=== PATIENT | male | born 1970 | race Caucasian/White ===

== ENCOUNTER 2017-10-13 09:07 | Outpatient (CLI) ==
[2013-05-19 00:25] VITALS: BMI 24.8
--- NOTE | 2017-10-13 11:15 | DI ---
EXAM: Three views of the right shoulder HISTORY: Pain in the right shoulder . COMPARISON: None FINDINGS: Right shoulder demonstrates no cortical irregularity or displaced fracture. There is no ly tic or blastic lesion. The glenohumeral joint and acromioclavicular joint are normal. The soft tiss ues are unremarkable. The adjacent osseous structures are normal. IMPRESSION: No acute abnormality of the right shoulder.
--- NOTE | 2017-10-13 11:16 | MRI ---
EXAM: MRI right knee without contrast. HISTORY: Right knee pain. More medial. Injured playing softball months ago. No reported right kne e surgery.. TECHNIQUE: Using a local extremity coil on a high field strength magnet multiplanar multisequence MR I was performed of the right knee without intravenous or intra-articular gadolinium contrast. FINDINGS: I do not have prior radiographs of the right knee available for comparison at the time of this dictation. Within the medial compartment there is a small area of tear along the superior articulating surface/i nner margin at the root posterior horn medial meniscus. Underlying bone marrow edema with subchondra l cyst formation at the posterior horn root insertion. Tear extends along the superior articulating s urface of the posterior horn body junction with changing slope. Suspected menisco-capsular sprain ov er the posterior medial corner as well. There is chondrosis with cartilage surface fissuring over th e weightbearing medial femoral condyle. Some generalized cartilage attenuation over the weightbearin g medial tibial plateau. Focal subchondral bone marrow edema over the medial weightbearing rim of th e medial tibial plateau. Early productive osteophyte formation. Within the lateral compartment the lateral meniscus is intact without discrete surfacing meniscal tea r. The lateral compartment cartilage congruent without focal underlying subchondral edema.. Early p roductive osteophyte formation. Within the patellofemoral compartment the patella seated with intact medial and lateral patellar reti naculum. Marked patellar chondrosis/chondromalacia patella with 20 mm wide area of full-thickness ca rtilage ulceration extending from median ridge over the medial facet with underlying subchondral lore a.. Corresponding chondrosis and cartilage fissuring over the lateral central trochlear groove with underlying subchondral edema. Early productive osteophyte formation. Moderate sized right knee effusion. Prominent plica. No large osteochondral loose bodies. Intact A CL and PCL fibers. The extensor mechanism is intact. The medial collateral ligament as well as late ral collateral ligament complex and posterolateral corner intact. IMPRESSION: Small tear along the superior articulating surface/inner margin at the root posterior ho rn medial meniscus. Underlying bone marrow edema with subchondral cyst formation. Tear extends sabrina g the superior articulating surface of the posterior horn body junction with changing slope. Suspect ed menisco-capsular sprain over the posterior medial corner. Changes of tricompartmental osteoarthrosis, medial and patellofemoral compartment dominant. Specific ally there is marked patellar chondrosis/chondromalacia patella. Moderate sized right knee effusion. Prominent plica. Intact cruciate and collateral ligaments.
== END 2017-10-13 09:08 | disposition home or self-care (01) ==
LOC: RAD 09:07
PROVIDERS: ATTEND Physician Assistant
DX: M25.511 Pain in right shoulder (principal); M25.561 Pain in right knee

== ENCOUNTER 2018-05-03 22:09 | Emergency (ER) ==
[2018-05-03 22:30] VITALS: BP 157/76; TEMP 99.1; BMI 28.8
[2018-05-03] MEDS ORDERED: LIDOCAINE HCL 1% SDV IM STA (22:50)
[2018-05-03] MEDS ORDERED: ROCEPHIN IM STA (22:50)
--- NOTE | 2018-05-03 23:10 | ED.PDOC ---
General ED Provider: Dr. PEDRO MANE Chief Complaint: Tooth Problem Stated Complaint: Patient states he has left facial swelling and pain for the past few days. He is getting a root cannal and was seen by his dentist today prescribed clindamycin but has not filled it. Also prescribed [place] but also has not filled it. was worried about swelling getting worse. Time Seen by Physician: 23:08 Mode of Arrival: Walk-In Information Source: Patient Exam Limitations: No limitations Primary Care Provider: SHAVON BUCK Nursing and Triage Documentation Reviewed and Agree: Yes Does patient meet sepsis criteria?: No System Inflammatory Response Syndrome: Not Applicable Sepsis Protocol: For patient's 13 years and over: Temp is 96.8 and below OR 101 and greater Pulse >90 BPM Resp >20/minute Acutely Altered Mental Status Are patient's symptoms suggestive of a new infection, such as: -Pneumonia -Skin, Soft Tissue -Endocarditis -UTI -Bone, Joint Infection -Implantable Device -Acute Abdominal Infection -Wound Infection -Meningitis -Blood Stream Catheter Infection -Unknown EENT Complaint Exam - Dental/Oral Complaint/Exam Mechanism of Injury: No known trauma Onset/Duration: 2 days Symptoms Are: Still present Timing: Constant Initial Severity: Moderate Current Severity: Severe Location: Left face and Jaw Character: Reports: Aching, Throbbing Aggravating: Reports: Heat, Cold, Chewing, Exertion Alleviating: Reports: None Associated Signs and Symptoms: Reports: Swelling. Denies: Fever, Foul odor, Foul taste in mouth Related History: Reports: Similar episode Cardiac Risk Factors: Reports: None Dental/Oral Surgical History: Reports: Periodontal Surgery Tooth Findings: Present: Percussion tenderness Cervical Lymphadenopathy Present: Yes (mostly on the left ) Facial Swelling Present: Yes (Left chin) Bleeding Present: No Oropharynx Findings: Absent: Clots, Active bleeding Septal Hematoma: No Foreign Body Present: No Dysphagia Present: No Drooling Present: No Asymmetrical Tonsillar Swelling Present: No Uvula Midline: No Miriam-tonsillar Fluctuence: No Trismus Present: No Palatal Petechiae Present: No Scarlatinaform Rash Present: No Differential Diagnoses: Dental Abcess, Dental Caries, Gingivitis Review of Systems - Review Of Systems Constitutional: Reports: No symptoms Eyes: Reports: No symptoms Ears, Nose, Mouth, Throat: Reports: Mouth pain Respiratory: Reports: No symptoms Cardiac: Reports: No symptoms GI: Reports: No symptoms : Reports: No symptoms Musculoskeletal: Reports: No symptoms Skin: Reports: No symptoms Neurological: Reports: No symptoms Endocrine: Reports: No symptoms Hematologic/Lymphatic: Reports: No symptoms All Other Systems: Reviewed and Negative Past Medical History - Past Medical History Previously Healthy: Yes Endocrine: Reports: None Cardiovascular: Reports: None Respiratory: Reports: None Hematological: Reports: None Gastrointestinal: Reports: None Genitourinary: Reports: None Neuro/Psych: Reports: None Musculoskeletal: Reports: Joint Pain Cancer: Reports: None Other Pertinent Past Medical History: Dental caries - Surgical History General Surgical History: Reports: Other (right knee - meniscus tear repaired) - Family History Family History: Reports: Unknown - Social History Smoking Status: Current every day smoker, Heavy tobacco smoker Hx Substance Use: No Alcohol Screening: Occasionally - Immunizations Tetanus Shot up to Date: Yes Physical Exam - Physical Exam Appearance: Ill-appearing Ill-appearing: Moderate Pain Distress: Severe ENT: Ears normal, Nose normal Neck: Supple Respiratory: Airway patent, Breath sounds clear, Breath sounds equal, Respirations nonlabored Cardiovascular: RRR, Pulses normal, No rub, No murmur GI/: Soft Musculoskeletal: Normal strength, ROM intact, No edema, No calf tenderness Skin: Warm, Dry, Normal color Neurological: Sensation intact Psychiatric: Anxious Critical Care Note - Critical Care Note Total Time (mins): 0 Course - Course Orders, Labs, Meds: Orders Category Date Time Status Ceftriaxone Sodium [Rocephin] MEDS 05/03/18 22:50 Discontinued 1 gm IM ONCE STA Lidocaine HCl/Pf [Lidocaine HCl 1% Sdv] MEDS 05/03/18 22:50 Discontinued 2.1 ml IM ONCE STA Medications Discontinued Medications Generic Name Dose Route Start Last Admin Trade Name Jorge Alberto PRN Reason Stop Dose Admin Ceftriaxone Sodium 1 gm 05/03/18 22:50 05/03/18 23:03 Rocephin IM 05/03/18 22:51 1 gm ONCE STA Administration Lidocaine HCl 2.1 ml 05/03/18 22:50 05/03/18 23:03 Lidocaine Hcl 1% Sdv IM 05/03/18 22:51 2.1 ml ONCE STA Administration Vital Signs: Temp Pulse Resp BP Pulse Ox 05/03/18 22:16 99.1 F 72 20 157/76 H 98 Departure - Departure Time of Disposition: 23:28 Disposition: HOME SELF-CARE Discharge Problem: Toothache Instructions: Toothache (ED) Condition: Stable Pt referred to PMD for follow-up: Yes IPMP verified?: No Additional Instructions: Follow up with PCP and Dentist for the way forward with regard to your Root canal Be sure to take all prescribed medications. Allergies/Adverse Reactions: Allergies No Known Drug Allergies Adverse Reaction (Verified 05/03/18 22:29) Home Medications: Ambulatory Orders 1 [No Reported Medications] 05/19/13 Disposition Discussed With: Patient, Family
[2018-05-03] MEDS ORDERED: NORCO 7.5-325 PO STA (23:40)
== END 2018-05-03 23:40 | disposition home or self-care (01) ==
LOC: ED 22:09
DX: K08.89 Other specified disorders of teeth and supporting structures (principal); F17.210 Nicotine dependence, cigarettes, uncomplicated; Z98.890 Other specified postprocedural states
CPT/HCPCS: 96372; 99282

== ENCOUNTER 2018-12-29 17:27 | Emergency (ER) ==
[2018-12-29 17:31] VITALS: BP 175/79; TEMP 98.1; BMI 28.6
--- NOTE | 2018-12-29 17:40 | ED.PDOC ---
General ED Provider: Dr. FIFI HDZ-ER Chief Complaint: Abscess Stated Complaint: reinaldo had this for years and now its larger Time Seen by Physician: 17:38 Mode of Arrival: Walk-In Information Source: Patient Exam Limitations: No limitations Primary Care Provider: SHAVON BUCK Nursing and Triage Documentation Reviewed and Agree: Yes Does patient meet sepsis criteria?: No System Inflammatory Response Syndrome: Not Applicable Sepsis Protocol: For patient's 13 years and over: Temp is 96.8 and below OR 101 and greater Pulse >90 BPM Resp >20/minute Acutely Altered Mental Status Are patient's symptoms suggestive of a new infection, such as: -Pneumonia -Skin, Soft Tissue -Endocarditis -UTI -Bone, Joint Infection -Implantable Device -Acute Abdominal Infection -Wound Infection -Meningitis -Blood Stream Catheter Infection -Unknown Skin Complaint Exam - Skin/Soft Tissue Complaint/Exam Onset/Duration: several mos Symptoms Are: Still present Timing: Constant Initial Severity: Mild Current Severity: Mild Location: left neck Character: Reports: Redness, Swelling, Raised, Painful Aggravating: Reports: Touch Alleviating: Reports: None Associated Signs and Symptoms: Reports: Tenderness, Red streaks Related History: Reports: Similar episode Related Surgical History: Reports: None Recent Exposure to Others w/Similar Symptoms: No Skin Findings: Present: Erythema, Induration Joint Tenderness Present: No Differential Diagnoses: Other Review of Systems - Review Of Systems Constitutional: Reports: No symptoms Eyes: Reports: No symptoms Ears, Nose, Mouth, Throat: Reports: No symptoms Respiratory: Reports: No symptoms Cardiac: Reports: No symptoms GI: Reports: No symptoms : Reports: No symptoms Musculoskeletal: Reports: No symptoms Skin: Reports: Lumps Neurological: Reports: No symptoms Endocrine: Reports: No symptoms Hematologic/Lymphatic: Reports: No symptoms All Other Systems: Reviewed and Negative Past Medical History - Past Medical History Previously Healthy: Yes Endocrine: Reports: None Cardiovascular: Reports: None Respiratory: Reports: None Hematological: Reports: None Gastrointestinal: Reports: None Genitourinary: Reports: None Neuro/Psych: Reports: None Musculoskeletal: Reports: Joint Pain Cancer: Reports: None Other Pertinent Past Medical History: Dental caries - Surgical History General Surgical History: Reports: Other (right knee - meniscus tear repaired) - Family History Family History: Reports: Unknown - Social History Smoking Status: Current every day smoker, Heavy tobacco smoker Hx Substance Use: No Alcohol Screening: Occasionally Physical Exam - Physical Exam Appearance: Well-appearing, No pain distress, Well-nourished Eyes: CECI, EOMI, Conjunctiva clear ENT: Ears normal, Nose normal, Oropharynx normal Neck: Supple Respiratory: Airway patent Cardiovascular: RRR, Pulses normal, No rub, No murmur GI/: Soft, Nontender, No masses, Bowel sounds normal, No Organomegaly Musculoskeletal: Normal strength, ROM intact, No edema, No calf tenderness Skin: Warm, Dry, Normal color Neurological: Sensation intact, Motor intact, Reflexes intact, Cranial nerves intact, Alert, Oriented Psychiatric: Affect appropriate, Mood appropriate Critical Care Note - Critical Care Note Total Time (mins): 0 Course - Course Vital Signs: Temp Pulse Resp BP Pulse Ox 12/29/18 17:29 98.1 F 73 20 175/79 H 96 Departure - Departure Time of Disposition: 17:40 Disposition: HOME SELF-CARE Discharge Problem: Infected sebaceous cyst Instructions: Epidermal Inclusion Cysts (ED) Condition: Good Pt referred to PMD for follow-up: No IPMP verified?: No Additional Instructions: minocin 100mg q 12hrs #30--heat---f/u with pcp for surgery or ent referral Allergies/Adverse Reactions: Allergies No Known Drug Allergies Adverse Reaction (Verified 12/29/18 17:31) Home Medications: Ambulatory Orders 1 [No Reported Medications] 05/19/13 Disposition Discussed With: Patient, Family
== END 2018-12-29 17:49 | disposition home or self-care (01) ==
LOC: ED 17:27
DX: L72.3 Sebaceous cyst (principal); F17.210 Nicotine dependence, cigarettes, uncomplicated
CPT/HCPCS: 99282